=== PATIENT | male | born 1955 | race Caucasian/White ===

== ENCOUNTER 2017-03-11 17:06 | Emergency (ER) | payer OTHER ==
[2017-03-11 17:13] VITALS: TEMP 98.2; BMI 35.4
[2017-03-11 18:12] VITALS: BP 168/108; PULSE 90
--- NOTE | 2017-03-11 18:14 | PDOC ---
History of Present Illness - General Chief Complaint: RX Refill Stated Complaint: PAIN Time Seen by Provider: 03/11/17 18:00 History Source: Patient Exam Limitations: No Limitations - History of Present Illness Initial Comments: 03/11/17 18:14 61 yr male with chronic pain to his left foot s/p multiple surgeries for osteoarthritis. Pt has been taking oxycodone since 2007. Pt states he has a surgery planned for 03/13/17 and he has run out of his meds. Pt states he is afraid of withdrawl. Severity: mild, severe Past History - Past Medical History Allergies/Adverse Reactions: Allergies Allergy/AdvReac Type Severity Reaction Status Date / Time No Known Allergies Allergy Verified 03/11/17 17:13 Home Medications: Ambulatory Orders Clonazepam [Klonopin] 0.5 mg PO HS 04/18/12 Oxycodone Sr [Oxycontin] 160 mg PO TID 04/18/12 Zolpidem Tartrate [Ambien] 10 mg PO HS 04/18/12 Oxycodone HCl/Acetaminophen [Percocet 10-325 mg Tablet] 1 each PO TID PRN #9 tablet MDD 30mg 03/11/17 Anemia: No Asthma: No Cancer: No Cardiac Disorders: No CVA: No COPD: No CHF: No DVT: No Dementia: No Diabetes: Yes GI Disorders: Yes (COLON POLYPS) Disorders: No HTN: No Hypercholesterolemia: No Liver Disease: No Psychiatric Problems: Yes (ANXIETY) Seizures: No Thyroid Disease: No - Surgical History Abdominal Surgery: No Appendectomy: No Cardiac Surgery: No Cholecystectomy: No Lung Surgery: No Neurologic Surgery: No Orthopedic Surgery: Yes (RIGHT KNEE ARTHROSCOPIC SURGERY) - Suicide/Smoking/Psychosocial Hx Smoking History: Never smoked Have you smoked in the past 12 months: No Number of Cigarettes Smoked Daily: 0 If you are a former smoker, when did you quit?: 5 YEARS Hx Alcohol Use: Yes (SOCIAL) Drug/Substance Use Hx: No Substance Use Type: Alcohol Hx Substance Use Treatment: No Review of Systems - Review of Systems Able to Perform ROS?: Yes Is the patient limited Czech proficient: No Constitutional: No: Symptoms Reported HEENTM: No: Symptoms Reported Respiratory: No: Symptoms reported Cardiac (ROS): No: Symptoms Reported ABD/GI: No: Symptoms Reported : No: Symptoms Reported Musculoskeletal: Yes: Symptoms Reported *Physical Exam - Vital Signs Last Vital Signs Temp Pulse Resp BP Pulse Ox 98.2 F 98 H 20 185/112 97 03/11/17 17:08 03/11/17 17:08 03/11/17 17:08 03/11/17 17:08 03/11/17 17:08 - Physical Exam General Appearance: Yes: Nourished, Appropriately Dressed HEENT: positive: EOMI, BÁRBARA Musculoskeletal: positive: Normal Inspection Extremity: positive: Normal Range of Motion, Other (bilateraly feet with intact skin, warm amd dry ) Integumentary: positive: Normal Color, Dry, Warm Neurologic: positive: Fully Oriented, Alert, Normal Mood/Affect, Normal Response , Motor Strength 5/5 Medical Decision Making - Medical Decision Making 03/11/17 18:16 cc: ran out of oxycodone I have checked the [facility] [place] rx control and pt has filled oxycodone 30mg tabs 210 pills given on 02/12/17. pt is due for his next prescription on 03/14/17 pt is Aox3 no acute distress I will give pt a short 3 day supply of oxycodone 10mg tabs pt is aware of the plan an understands the dc plan pt states if he "withdrawls" he will return to the ER *DC/Admit/Observation/Transfer Diagnosis at time of Disposition: Chronic pain in left foot - Discharge Dispostion Disposition: HOME Condition at time of disposition: Good - Prescriptions Prescriptions: Oxycodone HCl/Acetaminophen [Percocet 10-325 mg Tablet] 1 each PO TID PRN #9 tablet MDD 30mg PRN Reason: Severe Pain - Referrals Referrals: Nila Glover [Primary Care Provider] - - Patient Instructions Additional Instructions: you have been given a short supply of pain medication please use responsibly call your doctor who prescribes your medication tomorrow - Post Discharge Activity
== END 2017-03-11 18:48 | disposition home or self-care (01) ==
LOC: JER 17:06
DX: M19.072 Primary osteoarthritis, left ankle and foot (principal); M79.672 Pain in left foot; G89.29 Other chronic pain; F41.9 Anxiety disorder, unspecified; Z86.010 Personal history of colon polyps
CPT/HCPCS: 99282-25

== ENCOUNTER 2021-11-16 09:47 | Emergency (ER) | payer OTHER ==
[2021-11-16 10:10] VITALS: BP 167/90; PULSE 94; RESP 16; TEMP 98.4; BMI 34.0
[2021-11-16] MEDS ORDERED: IBUPROFEN 400 MG TABLET (FP) PO ONE ×2 (10:28→10:36)
[2021-11-16 11:10] LABS: HEMATOCRIT 34.7 % (35.4-49); HEMOGLOBIN 12.5 G/dL (11.7-16.9); MCH 33.5 pg (25.7-33.7); MCHC 35.9 g/dl (32.0-35.9); MEAN CELL VOLUME 93.3 fl (80-96); MEAN PLT VOLUME 8.8 fl (7.5-11.1); PLATELET COUNT 104.5 10^3/uL (134-434); RBC 3.72 10^6/uL (4.00-5.60); RDW 13.8 % (11.9-15.9); WHITE BLOOD COUNT 5.6 10^3/uL (4.0-10.8)
[2021-11-16 11:14] LABS: CREATININE 1.1 mg/dl (0.55-1.3); TOT PROT 7.3 g/dl (6.4-8.2); URIC ACID 10.8 mg/dl (2.6-7.2)
[2021-11-16 11:15] LABS: PLATELET ESTIMATE DECREASED
== END 2021-11-16 12:13 | disposition home or self-care (01) ==
LOC: FER 09:47
DX: M10.031 Idiopathic gout, right wrist (principal)
CPT/HCPCS: 36415; 73110-TC-RT-FY; 80053; 84550; 85027; 85651; 99284-25